=== PATIENT | female | born 1990 | race Caucasian/White ===

== ENCOUNTER 2019-11-26 08:57 | Day surgery (SDC) | payer OTHER ==
[~2019-11-26] VITALS: Ht 167.6 cm; Wt 65.4 kg
[2019-11-26] MEDS ORDERED: fentaNYL 100 MCG/2 ML INJECTION (J3010) As Ordered ONE (09:20)
[2019-11-26] MEDS ORDERED: propofoL 200 MG/20 ML VIAL As Ordered ONE (09:21)
[2019-11-26] MEDS ORDERED: LIDOCAINE 2% 100MG/5ML SDV (FOR ANES.) As Ordered ONE (09:22)
[2019-11-26] MEDS ORDERED: NS 1,000 ML IV SCH (10:00)
[2019-11-26 10:10] VITALS: BP 99/62
--- NOTE | 2019-12-17 11:29 | ROOR ---
Patient Name: Fannie Robbins Procedure Date: 11/26/2019 9:01 AM Date of : 1990 Age: 29 Room: [facility] Gender: Female Note Status: Case Manager Override Procedure: Upper Endoscopy + Biopsies Indications: Positive celiac serologies Providers: Mik Ham MD Referring MD: DAQUAN BUTT MD Requesting Provider: Medicines: Monitored Anesthesia Care Complications: No immediate complications. Procedure: Pre-Anesthesia Assessment: - The heart rate, respiratory rate, oxygen saturations, blood pressure, adequacy of pulmonary ventilation, and response to care were monitored throughout the procedure. The Endoscope was introduced through the mouth, and advanced to the second part of duodenum. The upper GI endoscopy was accomplished without difficulty. The patient tolerated the procedure well. Findings: The Z-line was regular and was found 40 cm from the incisors. No other significant abnormalities were identified in a careful examination of the stomach. Biopsies were taken with a cold forceps in the gastric antrum for Helicobacter pylori testing. The exam of the duodenum was otherwise normal. Biopsies for histology were taken with a cold forceps in the first portion of the duodenum for evaluation of celiac disease. The exam was otherwise without abnormality. Impression: - Z-line regular, 40 cm from the incisors. - The examination was otherwise normal. - Biopsies were taken with a cold forceps for Helicobacter pylori testing. - Biopsies were taken with a cold forceps for evaluation of celiac disease. - The examination was otherwise normal. Recommendation: - Patient has a contact number available for emergencies. The signs and symptoms of potential delayed complications were discussed with the patient. Return to normal activities tomorrow. Written discharge instructions were provided to the patient. - Resume previous diet. - Discharge patient to home. - Continue present medications. - Await pathology results. - Telephone GI clinic for pathology results in 1 week. - Return to referring physician. - The findings and recommendations were discussed with the patient. Mik Ham MD Mik Ham MD 11/26/2019 9:47:25 AM Number of Addenda: 0 Note Initiated On: 11/26/2019 9:01 AM Estimated Blood Loss: Estimated blood loss: none.
== END 2019-11-26 10:17 | disposition home or self-care (01) ==
LOC: M OPP 08:57
PROVIDERS: ATTEND Internal Medicine Gastroenterology
DX: R76.8 Other specified abnormal immunological findings in serum (principal); K52.9 Noninfective gastroenteritis and colitis, unspecified; Z83.79 Family history of other diseases of the digestive system; Z91.040 Latex allergy status
CPT/HCPCS: 43239; 88305; J3010